=== PATIENT | male | born 1970 | race Caucasian/White ===

== ENCOUNTER → 2018-03-27 | Outpatient (CLI) | payer OTHER ==
[2018-03-27] MEDS: OXYMETAZOLINE 0.05% NASAL SPRAY 30ML BOTTLE. NS (21:30)
== END | disposition home or self-care (01) ==
LOC: SLPLAB 18:36
DX: G47.33 Obstructive sleep apnea (adult) (pediatric) (principal); R06.83 Snoring
CPT/HCPCS: 95810

== ENCOUNTER 2021-07-15 13:35 | Emergency (ER) | payer OTHER ==
[~2021-07-15] VITALS: Ht 172.7 cm; Wt 127.2 kg
[2021-07-15] MEDS ORDERED: IV NORMAL SALINE 1000ML BAG 1,000 ML IV ONE (14:15)
[2021-07-15] MEDS ORDERED: MORPHINE SULFATE 10 MG/ML VIAL. IV ONE (14:15)
[2021-07-15] MEDS ORDERED: ACETAMINOPHEN 500 MG TABLET PO ONE (14:15)
--- NOTE | 2021-07-15 14:20 | PHYS DOC ---
General Adult EDM: Chief Complaint: BLOOD IN URINE HPI: HPI: 51-year-old male who was recently diagnosed with coronavirus presents to the emergency department complaining of hematuria. He describes a hematuria as throughout his urinary stream, change in color from dark brown to purple intermittently. He reports some mild pain with urination, he also complains of some left flank and left lower quadrant abdominal pain with the urination. He also complains of fever, shortness of breath, congestion from his viral illness. He has not been vaccinated for Covid. The patient denies nausea, vomiting, chest pain, abdominal pain, urinary symptoms, stool change, recent trauma, or any other complaints. Review of Systems: Review of Systems: ROS is otherwise negative except for what was mentioned in HPI Heart Score: C/O Chest Pain: No Current Medications: Current Medications Medications (Trade) Dose Ordered Sig/Wojciech Start Time Stop Time Status Last Admin Dose Admin Acetaminophen (Tylenol) 1,000 mg 1X ONCE 07/15/21 14:15 07/15/21 14:16 UNV Morphine Sulfate (Morphine Sulfate) 5 mg 1X ONCE 07/15/21 14:15 07/15/21 14:16 UNV Sodium Chloride 1,000 ml @ 1,000 mls/hr 1X ONCE 07/15/21 14:15 07/15/21 15:14 UNV Allergies: Allergies: Allergies Coded Allergies Type Severity Reaction Last Updated Verified Penicillins Allergy Severe SHORTNESS OF BREATH 03/27/18 Yes Sulfa (Sulfonamide Antibiotics) Allergy Intermediate SWELLING, ITCHING 03/27/18 Yes Physical Exam: PE: Constitutional: No acute distress, non-toxic appearance. Warm to touch HENT: Atraumatic, bilateral external ears normal, nose normal. Eyes: PERRLA, EOMI, conjunctiva normal, no discharge. Neck: Normal range of motion, supple, no stridor. Cardiovascular: Heart rate regular rhythm. 2+ radial pulses Lungs & Thorax: No respiratory distress, symmetrical expansion. Abdomen: [Soft, left lower quadrant tenderness Skin: Warm, dry. Extremities: No tenderness, no cyanosis, ROM intact, no edema. Neurologic: Alert and oriented X 3, normal motor function, normal sensory function, no focal deficits noted. Non ataxic gait. GCS 15. Psychologic: Affect normal, judgment normal, mood normal. Current Patient Data: Labs: Laboratory Tests Test 07/15/21 14:20 07/15/21 16:54 White Blood Count 3.2 x10^3/uL (4.0-11.0) Red Blood Count 4.28 x10^6/uL (4.30-5.70) Hemoglobin 13.1 g/dL (13.0-17.5) Hematocrit 37.2 % (39.0-53.0) Mean Corpuscular Volume 87 fL (79-100) Mean Corpuscular Hemoglobin 31 pg (25-35) Mean Corpuscular Hemoglobin Concent 35 g/dL (31-37) Red Cell Distribution Width 14.0 % (11.5-14.5) Platelet Count 156 x10^3/uL (140-400) Neutrophils (%) (Auto) 64 % (31-73) Lymphocytes (%) (Auto) 20 % (24-48) Monocytes (%) (Auto) 15 % (0-9) Eosinophils (%) (Auto) 1 % (0-3) Basophils (%) (Auto) 1 % (0-3) Neutrophils # (Auto) 2.0 x10^3/uL (1.8-7.7) Lymphocytes # (Auto) 0.6 x10^3/uL (1.0-4.8) Monocytes # (Auto) 0.5 x10^3/uL (0.0-1.1) Eosinophils # (Auto) 0.0 x10^3/uL (0.0-0.7) Basophils # (Auto) 0.0 x10^3/uL (0.0-0.2) Sodium Level 136 mmol/L (136-145) Potassium Level 4.3 mmol/L (3.5-5.1) Chloride Level 99 mmol/L (98-107) Carbon Dioxide Level 29 mmol/L (21-32) Anion Gap 8 (6-14) Blood Urea Nitrogen 16 mg/dL (8-26) Creatinine 2.2 mg/dL (0.7-1.3) Estimated GFR (Cockcroft-Gault) 31.8 Glucose Level 122 mg/dL (70-99) Calcium Level 8.5 mg/dL (8.5-10.1) Urine Collection Type Unknown Urine Color Jessi Urine Clarity Cloudy Urine pH 6.0 (<5.0-8.0) Urine Specific [place] 1.020 (1.000-1.030) Urine Protein 100 mg/dL (NEG-TRACE) Urine Glucose (UA) Negative mg/dL (NEG) Urine Ketones (Stick) Trace mg/dL (NEG) Urine Blood Large (NEG) Urine Nitrite Negative (NEG) Urine Bilirubin Negative (NEG) Urine Urobilinogen Dipstick 0.2 mg/dL (0.2 mg/dL) Urine Leukocyte Esterase Small (NEG) Urine RBC Tntc /HPF (0-2) Urine WBC 1-4 /HPF (0-4) Urine Bacteria 0 /HPF (0-FEW) Urine Yeast Present /HPF Vital Signs: Vital Signs Date Time Temp Pulse Resp B/P (MAP) Pulse Ox O2 Delivery O2 Flow Rate FiO2 07/15/21 16:00 94 154/78 (103) 95 07/15/21 15:00 99 146/80 (102) 95 07/15/21 14:00 102.5 104 20 129/79 95 102.5 Radiology/Procedures: Radiology/Procedures: EXAMINATION: CT ABDOMEN+PELVIS WO. Technique: Axial images with coronal and sagittal reconstructions are performed of abdomen and pelvis without contrast. One or more of the following radiation dose reduction techniques was used: automated exposure control, adjustment of mA and/or KV according to patient size, and/or utilization of iterative reconstruction technique. HISTORY: 51 years Male Reason: abdominal pain, llq, hematuria COMPARISON: None. FINDINGS: There is minimal focus of groundglass opacity in the inferior aspect of the lingula measuring 1.4 cm in size of uncertain etiology. There is diffuse hepatic steatosis. The spleen is a slightly enlarged measuring 15 x 5.5 cm and 13 cm craniocaudally. The pancreas, and adrenals appear unremarkable. The gallbladder is not seen presumably related to prior cholecystectomy. Correlate to surgical history. The kidneys demonstrate no hydronephrosis. There are from 2 stones in the lower from pole of the right kidney measuring up to 4 mm in size. The urinary bladder appear unremarkable. No left kidney or ureteric stones. There are sutures seen near the base of the cecum, presumably related to prior appendectomy. The abdominal aorta is normal in caliber. No para-aortic significantly enlarged lymph nodes seen. No significant free fluid or fluid collection in the abdomen or pelvis noted. There is an indeterminate soft tissue nodule seen anteriorly in the upper abdomen on the left side with possible attachment to abdominal wall musculature. It has smooth margins and it is probably of benign nature. Mildly enlarged mesenteric lymph nodes up to 1 cm in short axis is seen of uncertain significance. The osseous structures demonstrate no significant abnormality. IMPRESSION: 1. Nonobstructive the lower pole right kidney stones up to 4 mm in size. No hydronephrosis. 2. Mild splenomegaly. 3. Hepatic steatosis. 4. Mild enlargement of mesenteric lymph nodes. 5. Indeterminant smoothly marginated soft tissue nodule in the upper anterior aspect of the abdomen on the left side. 6. Groundglass nodule measuring 1.4 cm in the lower from aspect of the lingula in the lung base. 8. Follow-up CT scan of the abdomen in 6 months is recommended to reevaluate the findings above is suggested. Electronically signed by: Fran José MD (07/15/2021 3:16 PM) AP chest. HISTORY: Short of breath AP view was taken of the chest. Heart is normal in size. There is no pleural effusion. There are no definite infiltrates. The patient's taken a poor inspiration. IMPRESSION: 1. Poor inspiration. 2. No acute infiltrates. Electronically signed by: Vamsi Rizzo MD (07/15/2021 2:47 PM) Course & Med Decision Making: Course & Med Decision Making Vital Signs Date Time Temp Pulse Resp B/P (MAP) Pulse Ox O2 Delivery O2 Flow Rate FiO2 07/15/21 16:48 100.6 100.6 07/15/21 16:00 94 154/78 (103) 95 07/15/21 15:00 99 146/80 (102) 95 07/15/21 14:00 102.5 104 20 129/79 95 102.5 Patient's labs are as above including a creatinine of 2.2 GFR 31. He had a large amount of bloody appearing urine, but no cause was seen on CT. Patient was offered admission to the hospital, he would rather follow-up outpatient with his doctor. We will refer him to a urologist. I urged him to return if he has any progressive symptoms or symptoms do not change. His vitals are improved as above. He otherwise has no further complaints. He did mention that he has a history of chronic kidney disease, so this lab result today may very well be his baseline, although he does not know the number specifically. He was advised to continue to hydrate at home. He mentioned that he drinks lots of Monster energy drinks and does not drink enough water at home. He states that he will try to drink her water, follow-up with his physician in 48 hours and try to get repeat blood work as we discussed in 48 hours to compare to today's results Departure Departure Impression: Primary Impression: Hematuria Disposition: HOME / SELF CARE / HOMELESS Condition: STABLE Referrals: JAS RAMIREZ MD (PCP) Patient Instructions: Hematuria, Adult Additional Instructions: Please follow-up with a urologist as well as your primary care doctor. You need to have blood work done in 48 hours to compare to today's results. Your GFR was 31 and your creatinine was 2.2. Please get repeat blood work to compare. Please drink plenty of water at home, avoid caffeinated drinks, and remember to stay hydrated. You are offered admission to the hospital today but with shared decision-making we will attempt to manage her condition outpatient. If your condition changes at all, you welcome to return to the emergency department for further care. Urology Located in: [facility] Address: [address] [place] [address] [address], [place] [address] DOMINIQUE SIMMONS DO Jul 15, 2021 14:20
[2021-07-15 14:36] LABS: BASO % 1 % (0-3); CALCIUM 8.5 mg/dL (8.5-10.1); CREATININE 2.2 mg/dL (0.7-1.3); EOS % 1 % (0-3); GFR 31.8; HEMATOCRIT 37.2 % (39.0-53.0); HEMOGLOBIN 13.1 g/dL (13.0-17.5); LYMPH # 0.6 x10^3/uL (1.0-4.8); LYMPH % 20 % (24-48); MEAN CORPUSCULAR HEMOGLOBIN 31 pg (25-35); MEAN CORPUSCULAR HGB CONC 35 g/dL (31-37); MEAN CORPUSCULAR VOLUME 87 fL (79-100); MONO # 0.5 x10^3/uL (0.0-1.1); MONO % 15 % (0-9); NEUT % 64 % (31-73); PLATELET COUNT 156 x10^3/uL (140-400); POTASSIUM 4.3 mmol/L (3.5-5.1); RED BLOOD COUNT 4.28 x10^6/uL (4.30-5.70); WHITE BLOOD COUNT 3.2 x10^3/uL (4.0-11.0)
--- NOTE | 2021-07-15 14:50 | RAD ---
AP chest. HISTORY: Short of breath AP view was taken of the chest. Heart is normal in size. There is no pleural effusion. There are no d efinite infiltrates. The patient's taken a poor inspiration. IMPRESSION: 1. Poor inspiration. 2. No acute infiltrates. Electronically signed by: Vamsi Rizzo MD (07/15/2021 2:47 PM) [facility]
--- NOTE | 2021-07-15 15:19 | RAD ---
Site ID: [id number] EXAMINATION: CT ABDOMEN+PELVIS WO. Technique: Axial images with coronal and sagittal reconstructions are performed of abdomen and pelvis without contrast. One or more of the following radiation dose reduction techniques was used: automated exposure control , adjustment of mA and/or KV according to patient size, and/or utilization of iterative reconstructio n technique. HISTORY: 51 years Male Reason: abdominal pain, llq, hematuria COMPARISON: None. FINDINGS: There is minimal focus of groundglass opacity in the inferior aspect of the lingula measuring 1.4 cm in size of uncertain etiology. There is diffuse hepatic steatosis. The spleen is a slightly enlarged measuring 15 x 5.5 cm and 13 cm craniocaudally. The pancreas, and adrenals appear unremarkable. The gallbladder is not seen presumab ly related to prior cholecystectomy. Correlate to surgical history. The kidneys demonstrate no hydronephrosis. There are from 2 stones in the lower from pole of the righ t kidney measuring up to 4 mm in size. The urinary bladder appear unremarkable. No left kidney or ure teric stones. There are sutures seen near the base of the cecum, presumably related to prior appendectomy. The abdominal aorta is normal in caliber. No para-aortic significantly enlarged lymph nodes seen. No significant free fluid or fluid collection in the abdomen or pelvis noted. There is an indeterminate soft tissue nodule seen anteriorly in the upper abdomen on the left side wi th possible attachment to abdominal wall musculature. It has smooth margins and it is probably of kathryn ign nature. Mildly enlarged mesenteric lymph nodes up to 1 cm in short axis is seen of uncertain sign ificance. The osseous structures demonstrate no significant abnormality. IMPRESSION: 1. Nonobstructive the lower pole right kidney stones up to 4 mm in size. No hydronephrosis. 2. Mild splenomegaly. 3. Hepatic steatosis. 4. Mild enlargement of mesenteric lymph nodes. 5. Indeterminant smoothly marginated soft tissue nodule in the upper anterior aspect of the abdomen o n the left side. 6. Groundglass nodule measuring 1.4 cm in the lower from aspect of the lingula in the lung base. 8. Follow-up CT scan of the abdomen in 6 months is recommended to reevaluate the findings above is nicholson ggested. Electronically signed by: Fran José MD (07/15/2021 3:16 PM) [id number]
[2021-07-15 17:03] LABS: BILIRUBIN,URINE NEGATIVE (NEG); CLARITY,URINE CLOUDY; NITRITE,URINE NEGATIVE (NEG); PROTEIN,URINE 100 mg/dL (NEG-TRACE); UROBILINOGEN,URINE 0.2 mg/dL (0.2 mg/dL)
[2021-07-15 17:12] LABS: COLOR,URINE AMBER
[2021-07-15 17:16] LABS: BACTERIA,URINE 0 /HPF (0-FEW); RBC,URINE TNTC /HPF (0-2)
[2021-07-15 17:18] LABS: YEAST,URINE PRESENT /HPF
[2021-07-15 18:50] VITALS: BP 138/70
== END 2021-07-15 18:50 | disposition home or self-care (01) ==
LOC: ER 13:35
DX: R31.9 Hematuria, unspecified (principal); R10.32 Left lower quadrant pain; R50.9 Fever, unspecified; R06.02 Shortness of breath; R09.81 Nasal congestion; Z88.0 Allergy status to penicillin; Z88.2 Allergy status to sulfonamides
CPT/HCPCS: 36415; 71045; 74176; 80048; 81001; 85025; 87086; 96360; 96361; 99285; J7030

== ENCOUNTER 2021-07-25 21:48 | Inpatient (IN) | payer OTHER ==
[~2021-07-25] VITALS: Ht 172.7 cm; Wt 119.5 kg
[2021-07-25] MEDS: IV NORMAL SALINE 1000ML BAG 1,000 ML IV ONE (01:30)
--- NOTE | 2021-07-25 22:01 | PHYS DOC ---
Past Medical History Additional Past Medical Histor: PE Past Surgical History: Appendectomy Additional Past Surgical Histo: PLASTIC SURGERY ON EARS Smoking Status: Former Smoker Alcohol Use: Rarely General Adult EDM: Chief Complaint: Shortness of breath HPI: HPI: This is a 31-year-old male who recently was diagnosed with Covid presents to the emergency complaining of increasing shortness of breath and chest pain when he breathes in deeply. He has a history of pulmonary embolism in the past. He reports that he wears a CPAP regularly at night and he has having more shortness of breath than usual with the CPAP machine. Endorses mild cough the patient denies nausea, vomiting, fever, chills, abdominal pain, urinary symptoms, recent trauma, or any other complaints. Review of Systems: Review of Systems: ROS is otherwise negative except for what was mentioned in HPI Heart Score: C/O Chest Pain: Yes HEART Score for Chest Pain: HEART Score for Chest Pain Response (Comments) Value History Moderately Suspicious 1 ECG Normal 0 Age >45 - < 65 1 Risk Factors 1 or 2 Risk Factors 1 Total 3 Allergies: Allergies: Allergies Coded Allergies Type Severity Reaction Last Updated Verified Penicillins Allergy Severe SHORTNESS OF BREATH 03/27/18 Yes Sulfa (Sulfonamide Antibiotics) Allergy Intermediate SWELLING, ITCHING 03/27/18 Yes Uncoded Allergies Type Severity Reaction Last Updated Verified SHELLFISH Allergy Unknown 07/15/21 Physical Exam: PE: Constitutional: No acute distress, non-toxic appearance. HENT: Atraumatic, bilateral external ears normal, nose normal. Eyes: PERRLA, EOMI, conjunctiva normal, no discharge. Neck: Normal range of motion, supple, no stridor. Cardiovascular: Heart rate regular rhythm. 2+ radial pulses Lungs & Thorax: No respiratory distress, symmetrical expansion. Abdomen: Soft, no tenderness Skin: Warm, dry. Extremities: No tenderness, no cyanosis, ROM intact, no edema. Neurologic: Alert and oriented X 3, normal motor function, normal sensory function, no focal deficits noted. Non ataxic gait. GCS 15. Psychologic: Affect normal, judgment normal, mood normal. Current Patient Data: Labs: Laboratory Tests Test 07/25/21 22:20 07/25/21 22:26 SARS-CoV-2 Antigen (Rapid) Negative (NEGATIVE) White Blood Count 4.4 x10^3/uL (4.0-11.0) Red Blood Count 4.11 x10^6/uL (4.30-5.70) Hemoglobin 12.4 g/dL (13.0-17.5) Hematocrit 34.3 % (39.0-53.0) Mean Corpuscular Volume 83 fL (79-100) Mean Corpuscular Hemoglobin 30 pg (25-35) Mean Corpuscular Hemoglobin Concent 36 g/dL (31-37) Red Cell Distribution Width 14.1 % (11.5-14.5) Platelet Count 231 x10^3/uL (140-400) Neutrophils (%) (Auto) 59 % (31-73) Lymphocytes (%) (Auto) 28 % (24-48) Monocytes (%) (Auto) 10 % (0-9) Eosinophils (%) (Auto) 3 % (0-3) Basophils (%) (Auto) 1 % (0-3) Neutrophils # (Auto) 2.6 x10^3/uL (1.8-7.7) Lymphocytes # (Auto) 1.2 x10^3/uL (1.0-4.8) Monocytes # (Auto) 0.4 x10^3/uL (0.0-1.1) Eosinophils # (Auto) 0.1 x10^3/uL (0.0-0.7) Basophils # (Auto) 0.0 x10^3/uL (0.0-0.2) D-Dimer (Marilu) < 0.27 ug/mlFEU Sodium Level 140 mmol/L (136-145) Potassium Level 3.4 mmol/L (3.5-5.1) Chloride Level 103 mmol/L (98-107) Carbon Dioxide Level 27 mmol/L (21-32) Anion Gap 10 (6-14) Blood Urea Nitrogen 17 mg/dL (8-26) Creatinine 1.7 mg/dL (0.7-1.3) Estimated GFR (Cockcroft-Gault) 42.9 Glucose Level 81 mg/dL (70-99) Calcium Level 8.6 mg/dL (8.5-10.1) Troponin I Quantitative < 0.017 ng/mL (0.000-0.055) AG-Pqi-F-Type Natriuretic Peptide 35 pg/mL (0-124) Vital Signs: Vital Signs Date Time Temp Pulse Resp B/P (MAP) Pulse Ox O2 Delivery O2 Flow Rate FiO2 07/25/21 21:50 98.7 91 16 130/82 (98) 95 Room Air 98.7 EKG: EKG: Normal sinus rhythm rate of 91, no ST-T wave changes, no ectopic beats, normal axis, normal NE, QRS, and QTc intervals. Impression: Normal EKG. interpreted by me, Paul Hutchinson D.O. Radiology/Procedures: Radiology/Procedures: EXAMINATION: Chest radiograph. VIEWS: Single AP view of the chest COMPARISON: 07/15/2021 INDICATION:51 years, Male, COVID , shortness of breath. FINDINGS: Normal cardiomediastinal silhouette. Decreased lung volumes. Right perihilar linear opacities. Left basilar hazy airspace opacity. No pleural effusion or pneumothorax. No acute osseous process. IMPRESSION: 1. Left basilar airspace opacity favoring pneumonia. 2. Right perihilar opacities may represent subsegmental atelectasis and/or developing infiltrate. Course & Med Decision Making: Course & Med Decision Making Patient with recent Covid diagnosis, he has pneumonia on his chest x-ray today, we will admit him to the hospital for further care and IV antibiotics. Patient will be admitted to Dr. Quintanilla. Patient amenable to this plan. He uses CPAP at night as per regular. My Orders - PAUL HUTCHINSON DO Procedure Category Date Status Time Cbc W Autodiff LAB 07/25/21 Complete 22:13 Basic Metabolic Panel LAB 07/25/21 Complete 22:13 D-Dimer LAB 07/25/21 Complete 22:13 Troponini LAB 07/25/21 Complete 22:13 Nt-Pro Bnp LAB 07/25/21 Complete 22:13 Chest Ap Only RAD 07/25/21 Resulted 22:20 Sars Cov2 (Tarsha) LAB 07/25/21 In Process 22:15 Sars Antigen Nuria Rapid LAB 07/25/21 Complete 22:15 Ceftriaxone Iv Push PHA 07/25/21 Complete (Rocephin) 23:30 Azithrmycn 500mg Ivpb PHA 07/25/21 In Process For Omni (Zithroma 23:30 Blood Culture SHAYLA 07/25/21 Logged 23:12 Lactic Acid With LAB 07/25/21 Logged Reflex 23:12 Iv Normal Saline PHA 07/25/21 In Process 1000ml Bag (Iv Sodium 23:30 Iv Normal Saline PHA 07/25/21 In Process 1000ml Bag (Iv Sodium 23:30 Departure Departure Impression: Primary Impression: Pneumonia Disposition: ADMITTED INPATIENT Admitting Physician: DELL Macias) Condition: STABLE Referrals: JAS RAMIREZ MD (PCP) PAUL HUTCHINSON DO Jul 25, 2021 22:01
[2021-07-25 22:43] LABS: BASO % 1 % (0-3); EOS # 0.1 x10^3/uL (0.0-0.7); EOS % 3 % (0-3); HEMATOCRIT 34.3 % (39.0-53.0); HEMOGLOBIN 12.4 g/dL (13.0-17.5); LYMPH # 1.2 x10^3/uL (1.0-4.8); LYMPH % 28 % (24-48); MEAN CORPUSCULAR HEMOGLOBIN 30 pg (25-35); MEAN CORPUSCULAR HGB CONC 36 g/dL (31-37); MEAN CORPUSCULAR VOLUME 83 fL (79-100); MONO # 0.4 x10^3/uL (0.0-1.1); MONO % 10 % (0-9); NEUT # 2.6 x10^3/uL (1.8-7.7); NEUT % 59 % (31-73); PLATELET COUNT 231 x10^3/uL (140-400); RED BLOOD COUNT 4.11 x10^6/uL (4.30-5.70); RED CELL DISTRIBUTION WIDTH 14.1 % (11.5-14.5); WHITE BLOOD COUNT 4.4 x10^3/uL (4.0-11.0)
[2021-07-25 23:02] LABS: CALCIUM 8.6 mg/dL (8.5-10.1); CREATININE 1.7 mg/dL (0.7-1.3); GFR 42.9; POTASSIUM 3.4 mmol/L (3.5-5.1)
--- NOTE | 2021-07-25 23:05 | RAD ---
EXAMINATION: Chest radiograph. VIEWS: Single AP view of the chest COMPARISON: 07/15/2021 INDICATION:51 years, Male, COVID , shortness of breath. FINDINGS: Normal cardiomediastinal silhouette. Decreased lung volumes. Right perihilar linear opacities. Left b asilar hazy airspace opacity. No pleural effusion or pneumothorax. No acute osseous process. IMPRESSION: 1. Left basilar airspace opacity favoring pneumonia. 2. Right perihilar opacities may represent subsegmental atelectasis and/or developing infiltrate. Electronically signed by: Edson Horn DO (07/25/2021 11:03 PM) [facility]
[2021-07-25] MEDS ORDERED: cefTRIAXone IV Push 1 GM VIAL. IVP ONE (23:30)
[2021-07-25] MEDS ORDERED: AZITHRMYCN 500MG IVPB FOR OMNI 250 ML IV ONE (23:30)
[2021-07-25] MEDS ORDERED: IV NORMAL SALINE 1000ML BAG 1,000 ML IV ONE (23:30)
[2021-07-26] MEDS ORDERED: fentaNYL PF VIAL 100 MCG/2 ML VIAL IVP PRN (00:15)
[2021-07-26] MEDS ORDERED: ONDANSETRON PF 4 MG/2 ML VIAL. IVP PRN ×2 (00:15→09:15)
[2021-07-26] MEDS ORDERED: ACETAMINOPHEN 325 MG TABLET. PO PRN ×2 (00:15→09:15)
[2021-07-26] MEDS: IV NORMAL SALINE 1000ML BAG 1,000 ML IV ONE (01:30)
--- NOTE | 2021-07-26 02:46 | NUR ---
Jr just arrived from Ed via bed With PNU,SOA and PUI. Was Covid + on 07/15. He is A/O x4 and will make needs known.
[2021-07-26 03:20] VITALS: BP 138/92
[2021-07-26] MEDS ORDERED: RIVA10TA PO (03:25)
[2021-07-26] MEDS ORDERED: OMEP20TA8 PO (03:25)
[2021-07-26] MEDS ORDERED: LISI10TA16 PO (03:25)
[2021-07-26] MEDS ORDERED: LORA10TA3 PO (03:25)
[2021-07-26 07:00] VITALS: BP 129/89
--- NOTE | 2021-07-26 09:08 | PDOC1 ---
History and Physical Date of Service: DOS: DATE: 07/26/21 TIME: 09:07 Chief Complaint: Problems: (1) Pneumonia due to COVID-19 virus (2) Obesity (3) History of pulmonary embolus (PE) Chief Complain: Weakness, shortness of breath History of Present Illness: HPI: Patient is a 51-year-old white male presented to the emergency room overnight due to worsening shortness of breath. Patient does have a history of DVTs and pulmonary embolism currently on home Xarelto. Patient reports that he was diagnosed with Covid positive a few days ago. Initially sent home and was doing okay. He however, wears a CPAP at night and anytime he sleeps and the patient reports that he has been more short of breath despite continued use of his CPAP with compliance. He says that yesterday the shortness of breath was really worrying him thus he was brought to the ER for admitted. When seen today espinoza ent was reporting that his breathing was better but still not at his baseline. On 2 L nasal cannula does not wear home oxygen. Would like a CPAP provided for when he sleeps. Patient is wanting to get back to work as soon as possible. I told him we would like to keep it for at least tonight can reevaluate in the morning. And on a daily basis. He was denying any sort of headache, dizziness, vision changes, fevers, chest pain, abdominal pain, joint pain. Past Medical/Surgical History: PMH/PSH: Significant for history of pulmonary embolism and DVT, which was recurrent initially in 2017 and then in 2018. He has been on Xarelto since then. Sleep apnea. Allergies: Allergies: Coded Allergies: Penicillins (Verified Allergy, Severe, SHORTNESS OF BREATH, 03/27/18) iodine (Verified Allergy, Severe, 07/25/21) shellfish derived (Verified Allergy, Severe, 07/25/21) Sulfa (Sulfonamide Antibiotics) (Verified Allergy, Intermediate, SWELLING, ITCHING, 03/27/18) Family History: Family History: Noncontributory Social History: Social History: Denies alcohol tobacco or drug use Current Medications: Current Medications Current Medications Ceftriaxone Sodium (Rocephin) 2 gm 1X ONCE IVP Last administered on 07/25/21at 23:37; Start 07/25/21 at 23:30; Stop 07/25/21 at 23:31; Status DC Azithromycin 250 ml @ 250 mls/hr 1X ONCE IV Last administered on 07/25/21at 23:35; Start 07/25/21 at 23:30; Stop 07/26/21 at 00:29; Status DC Sodium Chloride 1,000 ml @ 1,000 mls/hr 1X ONCE IV Last administered on 07/25/21at 23:35; Start 07/25/21 at 23:30; Stop 07/26/21 at 00:29; Status DC Sodium Chloride 1,000 ml @ 1,000 mls/hr 1X ONCE IV Last administered on 07/26/21at 01:30; Start 07/25/21 at 23:30; Stop 07/26/21 at 00:29; Status DC Ondansetron HCl (Zofran) 4 mg PRN Q8HRS PRN IVP NAUSEA/VOMITING 1ST CHOICE; Start 07/26/21 at 00:15; Stop 07/27/21 at 00:14 Fentanyl Citrate (Fentanyl 2ml Vial) 50 mcg PRN Q2HR PRN IVP SEVERE PAIN 7-10; Start 07/26/21 at 00:15; Stop 07/27/21 at 00:14 Acetaminophen (Tylenol) 650 mg PRN Q4HRS PRN PO FEVER > 100.3'F; Start 07/26/21 at 00:15; Stop 07/27/21 at 00:14 Active Scripts Active Reported Omeprazole 20 Mg Tablet.dr 1 Tab PO DAILY Loratadine 10 Mg Tablet 1 Tab PO DAILY Xarelto (Rivaroxaban) 10 Mg Tablet 1 Tab PO DAILY 10 Days Lisinopril 10 Mg Tablet 10 Mg PO DAILY ROS: Review of Systems Review of System Negative unless noted in HPI Physical Exam: Vital Signs: Vital Signs Date Time Temp Pulse Resp B/P (MAP) Pulse Ox O2 Delivery O2 Flow Rate FiO2 07/26/21 07:00 98.4 79 20 129/89 (102) 96 Nasal Cannula 2.0 98.4 Physcial Exam: GEN: No apparent distress. Alert and oriented obese HEENT: Normal cephalic, atraumatic, external auditory canals are patent EYES: Extraocular muscles are intact, pupil are equally round and reactive to light and accommodation MUSCULOSKELETAL: Well developed , well nourished, good range of motion ENDOCRINE: No thyromegaly was palpated LYMPHATICS: No cervical chain or axillary nodes were noted HEMATOPOIETIC: No bruising NECK: Supple, no JVD, no thyromegaly was noted LUNGS: Clear to auscultation in all lung higgins without rhonchi or wheezing HEART: RRR, S1, S2 present. Peripheral pulses intact, no obvious murmurs noted ABDOMEN: Soft, nontender. Positive bowel sounds, no organomegaly, normal bowel sounds EXTREMITIES: Without clubbing, cyanosis, or edema. Pedal pulses intact. Negative Homans sign NEUROLOGIC: Normal speech and tone. A&O x 3, moves all extremities, no obvious focal deficits PSYCHIATRIC: Normal affect, normal mood. Stable SKIN: No ulcerations or rashes, good skin turgor, no jaundice VASCULAR: Good capillary refill, neurovascular bundle appears to be intact Labs: Labs: Laboratory Tests Test 07/25/21 22:20 07/25/21 22:26 07/26/21 00:10 SARS-CoV-2 Antigen (Rapid) Negative (NEGATIVE) White Blood Count 4.4 x10^3/uL (4.0-11.0) Red Blood Count 4.11 x10^6/uL (4.30-5.70) Hemoglobin 12.4 g/dL (13.0-17.5) Hematocrit 34.3 % (39.0-53.0) Mean Corpuscular Volume 83 fL (79-100) Mean Corpuscular Hemoglobin 30 pg (25-35) Mean Corpuscular Hemoglobin Concent 36 g/dL (31-37) Red Cell Distribution Width 14.1 % (11.5-14.5) Platelet Count 231 x10^3/uL (140-400) Neutrophils (%) (Auto) 59 % (31-73) Lymphocytes (%) (Auto) 28 % (24-48) Monocytes (%) (Auto) 10 % (0-9) Eosinophils (%) (Auto) 3 % (0-3) Basophils (%) (Auto) 1 % (0-3) Neutrophils # (Auto) 2.6 x10^3/uL (1.8-7.7) Lymphocytes # (Auto) 1.2 x10^3/uL (1.0-4.8) Monocytes # (Auto) 0.4 x10^3/uL (0.0-1.1) Eosinophils # (Auto) 0.1 x10^3/uL (0.0-0.7) Basophils # (Auto) 0.0 x10^3/uL (0.0-0.2) D-Dimer (Marilu) < 0.27 ug/mlFEU Sodium Level 140 mmol/L (136-145) Potassium Level 3.4 mmol/L (3.5-5.1) Chloride Level 103 mmol/L (98-107) Carbon Dioxide Level 27 mmol/L (21-32) Anion Gap 10 (6-14) Blood Urea Nitrogen 17 mg/dL (8-26) Creatinine 1.7 mg/dL (0.7-1.3) Estimated GFR (Cockcroft-Gault) 42.9 Glucose Level 81 mg/dL (70-99) Calcium Level 8.6 mg/dL (8.5-10.1) Troponin I Quantitative < 0.017 ng/mL (0.000-0.055) DQ-Zoq-S-Type Natriuretic Peptide 35 pg/mL (0-124) Lactic Acid Level 0.8 mmol/L (0.4-2.0) Laboratory Tests Test 07/25/21 22:20 07/25/21 22:26 07/26/21 00:10 SARS-CoV-2 Antigen (Rapid) Negative (NEGATIVE) White Blood Count 4.4 x10^3/uL (4.0-11.0) Red Blood Count 4.11 x10^6/uL (4.30-5.70) Hemoglobin 12.4 g/dL (13.0-17.5) Hematocrit 34.3 % (39.0-53.0) Mean Corpuscular Volume 83 fL (79-100) Mean Corpuscular Hemoglobin 30 pg (25-35) Mean Corpuscular Hemoglobin Concent 36 g/dL (31-37) Red Cell Distribution Width 14.1 % (11.5-14.5) Platelet Count 231 x10^3/uL (140-400) Neutrophils (%) (Auto) 59 % (31-73) Lymphocytes (%) (Auto) 28 % (24-48) Monocytes (%) (Auto) 10 % (0-9) Eosinophils (%) (Auto) 3 % (0-3) Basophils (%) (Auto) 1 % (0-3) Neutrophils # (Auto) 2.6 x10^3/uL (1.8-7.7) Lymphocytes # (Auto) 1.2 x10^3/uL (1.0-4.8) Monocytes # (Auto) 0.4 x10^3/uL (0.0-1.1) Eosinophils # (Auto) 0.1 x10^3/uL (0.0-0.7) Basophils # (Auto) 0.0 x10^3/uL (0.0-0.2) D-Dimer (Marilu) < 0.27 ug/mlFEU Sodium Level 140 mmol/L (136-145) Potassium Level 3.4 mmol/L (3.5-5.1) Chloride Level 103 mmol/L (98-107) Carbon Dioxide Level 27 mmol/L (21-32) Anion Gap 10 (6-14) Blood Urea Nitrogen 17 mg/dL (8-26) Creatinine 1.7 mg/dL (0.7-1.3) Estimated GFR (Cockcroft-Gault) 42.9 Glucose Level 81 mg/dL (70-99) Calcium Level 8.6 mg/dL (8.5-10.1) Troponin I Quantitative < 0.017 ng/mL (0.000-0.055) MK-Ili-L-Type Natriuretic Peptide 35 pg/mL (0-124) Lactic Acid Level 0.8 mmol/L (0.4-2.0) Assessment/Plan Assessment/Plan COVID-19 pneumonia, morbid obesity, history of pulmonary embolisms and DVTs on home Xarelto -Patient previously tested Covid positive a few days ago at outside facility, initially was managed outpatient -Several day history of worsening shortness of breath despite continued use of CPAP at night -Start Covid treatment measures and continue for now. -Pulmonary following -Wean oxygen as tolerated -Please provide patient CPAP -Continue home Xarelto -Otherwise Home meds resumed as indicated -Regular diet Justifications for Admission Other Justification PRETTY WILSON MD Jul 26, 2021 09:07
[2021-07-26] MEDS ORDERED: oxyCODONE IR 5 MG TABLET PO PRN (09:15)
[2021-07-26] MEDS ORDERED: oxyCODONE/APAP 5/325 1 TAB TABLET PO PRN (09:15)
[2021-07-26] MEDS ORDERED: ZOLPIDEM 5 MG TABLET. PO PRN (09:15)
[2021-07-26] MEDS ORDERED: ELECTROLYTE (NON-ICU) PROTOCOL. MC PRN (09:15)
[2021-07-26] MEDS ORDERED: CALCIUM CARBONATE 500 MG TAB.CHEW PO PRN (09:15)
[2021-07-26] MEDS ORDERED: RIVA20TA2 PO (09:28)
[2021-07-26] MEDS: PANTOPRAZOLE 40 MG TABLET.DR. PO SCH (10:49)
[2021-07-26] MEDS: CETIRIZINE HCL 10 MG TABLET. PO SCH (10:49)
[2021-07-26] MEDS: DOXYCYCLINE HYCLATE 100 MG TABLET PO SCH ×2 (10:50→21:01)
[2021-07-26] MEDS: LISINOPRIL 10 MG TABLET PO SCH (10:50)
--- NOTE | 2021-07-26 10:53 | CONS ---
DATE OF CONSULTATION: 07/26/2021 PULMONARY CONSULTATION ATTENDING PHYSICIAN: Liz Quintanilla DO. REASON FOR CONSULTATION: Respiratory failure, COVID-19 pneumonia. HISTORY OF PRESENT ILLNESS: The patient is a 51-year-old obese male with a BMI of 40. The patient has no significant history of tobacco use. He does have history of DVT and PE in 2017 and then reoccurred in 2018. He has been on Xarelto lifelong. He was brought into the hospital as he was tested positive for COVID on the 07/15. He started to have shortness of breath and some nonspecific chest pain. The patient has history of sleep apnea for which he uses CPAP at nighttime. He denies any tobacco use. He was seen in the emergency room where a chest x-ray revealed bilateral faint interstitial infiltrates with more dominant in the left base. He was tested COVID negative by rapid test. Creatinine was 1.7. The patient feels better. He is requiring oxygen at 2 liters. PAST MEDICAL HISTORY: Significant for history of pulmonary embolism and DVT, which was recurrent initially in 2017 and then in 2018. He has been on Xarelto since then. Sleep apnea. PAST SURGICAL HISTORY: Appendectomy and plastic surgery on ears. ALLERGIES: PENICILLIN, IODINE, SHELLFISH DERIVED AND SULFA. REVIEW OF SYSTEMS: A 12-point system obtained. Pertinent positives discussed in my present illness, otherwise noncontributory. All systems that were negative were reviewed as well. MEDICATIONS: Reviewed including antibiotic, Rocephin and doxycycline. SOCIAL HISTORY: Denies tobacco use. FAMILY HISTORY: Noncontributory to lungs. PHYSICAL EXAMINATION: VITAL SIGNS: Reviewed. Pulse ox 96%, afebrile. GENERAL: Visual exam done due to COVID-19. No paradoxical breathing. He is obese. EXTREMITIES: No edema or skin rash. IMPRESSION: 1. Acute hypoxic respiratory failure secondary to COVID-19 viral pneumonia. 2. Abnormal chest x-ray consistent with COVID-19 viral pneumonia. Cannot exclude superimposed bacterial pneumonia. 3. Underlying obesity with a BMI of 40 and underlying obstructive sleep apnea. On home CPAP at nighttime. 3. History of deep venous thrombosis and pulmonary embolism, which has been recurrent and is on lifelong anticoagulation with Xarelto. Initially, it was in 2017 and then reoccurred in 2018. RECOMMENDATIONS: 1. Continue present oxygen. Keep saturation 92 and above, currently down to 2 liters. Doing well. 2. Continue empiric antibiotic. 3. Continue Xarelto. 4. Add steroids. 5. Continue CPAP at bedtime. 6. We will follow along with you. Possible discharge in 48 hours. KIRA/VIJAY DR: KIRA/nichelle TID: [id number]
[2021-07-26 11:00] VITALS: BP 127/81
[2021-07-26] MEDS: DEXAMETHASONE 4 MG TABLET PO SCH (12:12)
[2021-07-26] MEDS: oxyCODONE/APAP 5/325 1 TAB TABLET PO PRN ×2 (12:13→17:29)
[2021-07-26 15:00] VITALS: BP 127/85
[2021-07-26] MEDS: RIVAROXABAN 10 MG TABLET. PO SCH (17:28)
[2021-07-26 19:00] VITALS: BP 143/92
[2021-07-26] MEDS ORDERED: cefTRIAXone IV Push 1 GM VIAL. IVP SCH (21:00)
[2021-07-26] MEDS: SENNOSIDES/DOCUSATE 8.6/50MG TABLET. PO SCH (21:01)
[2021-07-26 23:00] VITALS: BP 145/95
--- NOTE | 2021-07-27 01:38 | EKG ---
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
[2021-07-27 03:39] VITALS: BP 142/96
[2021-07-27 07:00] VITALS: BP 160/98
[2021-07-27] MEDS: CETIRIZINE HCL 10 MG TABLET. PO SCH (09:47)
[2021-07-27] MEDS: DOXYCYCLINE HYCLATE 100 MG TABLET PO SCH (09:47)
[2021-07-27] MEDS: PANTOPRAZOLE 40 MG TABLET.DR. PO SCH (09:48)
[2021-07-27] MEDS: DEXAMETHASONE 4 MG TABLET PO SCH (09:48)
[2021-07-27] MEDS: LISINOPRIL 10 MG TABLET PO SCH (09:48)
[2021-07-27 10:30] LABS: CALCIUM 8.2 mg/dL (8.5-10.1); CREATININE 1.5 mg/dL (0.7-1.3); GFR 49.5; MAGNESIUM 1.6 mg/dL (1.8-2.4); POTASSIUM 3.9 mmol/L (3.5-5.1)
[2021-07-27 10:40] LABS: BASO % 0 % (0-3); EOS % 0 % (0-3); HEMATOCRIT 33.4 % (39.0-53.0); HEMOGLOBIN 11.9 g/dL (13.0-17.5); LYMPH # 0.7 x10^3/uL (1.0-4.8); LYMPH % 12 % (24-48); MEAN CORPUSCULAR HEMOGLOBIN 30 pg (25-35); MEAN CORPUSCULAR HGB CONC 36 g/dL (31-37); MEAN CORPUSCULAR VOLUME 86 fL (79-100); MONO # 0.3 x10^3/uL (0.0-1.1); MONO % 6 % (0-9); NEUT # 4.6 x10^3/uL (1.8-7.7); NEUT % 82 % (31-73); PLATELET COUNT 240 x10^3/uL (140-400); RED CELL DISTRIBUTION WIDTH 13.6 % (11.5-14.5); WHITE BLOOD COUNT 5.6 x10^3/uL (4.0-11.0)
[2021-07-27 11:00] VITALS: BP 144/88
--- NOTE | 2021-07-27 11:05 | NUR ---
SW following. Discussed with RN, pt from home with roommate, 2L PRN, uses cpap at home, renal diet. COVID-19 positive. RN advised no SW needs at this time. SW will continue to follow.
[2021-07-27] MEDS: SENNOSIDES/DOCUSATE 8.6/50MG TABLET. PO SCH (12:12)
--- NOTE | 2021-07-27 12:37 | PDOC ---
[employer] PROGRESS NOTE Date of Service DOS: DATE: 07/27/21 TIME: 12:34 Chief Complaint Chief Complaint A/P: Acute hypoxic respiratory failure secondary to COVID-19 viral pneumonia. Abnormal chest x-ray consistent with COVID-19 viral pneumonia. Cannot exclude superimposed bacterial pneumonia. Will treat for bilateral pneumonia likely gram negative given hx Underlying obesity with a BMI of 40 Obstructive sleep apnea. On home CPAP at nighttime. History of deep venous thrombosis and pulmonary embolism, which has been recurrent and is on lifelong anticoagulation with Xarelto. Initially, it was in 2017 and then reoccurred in 2018. FEN - General diet PPX - xarelto FULL CODE Dispo - inpatient History of Present Illness History of Present Illness Mr Hernandez is a 51-year-old male with PMHx DVT and PE in 2017 and then reoccurred in 2018 on Xarelto lifelong, ADRIEL on CPAP, morbid obesity (BMI 40) who tested positive for COVID on the 07/15. He started to have shortness of breath and some nonspecific chest pain. The patient has history of sleep apnea for which he uses CPAP at nighttime. He denies any tobacco use. He was seen in the emergency room where a chest x-ray revealed bilateral faint interstitial infiltrates with more dominant in the left base. He was tested COVID negative by rapid test. Creatinine was 1.7. Admitted on 2L NCO2 with pulmonology consultation The patient feels better. He is requiring oxygen at 2 liters. Cr 1.5, mg 1.6. He is asking when he can go home and go back to work. 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 Vitals/I&O Vitals/I&O: Vital Signs Date Time Temp Pulse Resp B/P (MAP) Pulse Ox O2 Delivery O2 Flow Rate FiO2 07/27/21 09:48 73 160/98 07/27/21 07:00 98.3 17 99 Nasal Cannula 2.0 98.3 I & O 07/26/21 07/26/21 07/27/21 15:00 23:00 07:00 Output Total 250 ml 700 ml Balance -250 ml -700 ml Physical Exam General: Alert, Oriented X3, Cooperative Heart: Regular rate, Normal S1, Normal S2 Lungs: Wheezing Abdomen: Normal bowel sounds, Soft Extremities: No clubbing, No cyanosis Skin: No rashes, No breakdown Labs Labs: Laboratory Tests Test 07/27/21 10:05 White Blood Count 5.6 x10^3/uL (4.0-11.0) Red Blood Count 3.90 x10^6/uL (4.30-5.70) Hemoglobin 11.9 g/dL (13.0-17.5) Hematocrit 33.4 % (39.0-53.0) Mean Corpuscular Volume 86 fL (79-100) Mean Corpuscular Hemoglobin 30 pg (25-35) Mean Corpuscular Hemoglobin Concent 36 g/dL (31-37) Red Cell Distribution Width 13.6 % (11.5-14.5) Platelet Count 240 x10^3/uL (140-400) Neutrophils (%) (Auto) 82 % (31-73) Lymphocytes (%) (Auto) 12 % (24-48) Monocytes (%) (Auto) 6 % (0-9) Eosinophils (%) (Auto) 0 % (0-3) Basophils (%) (Auto) 0 % (0-3) Neutrophils # (Auto) 4.6 x10^3/uL (1.8-7.7) Lymphocytes # (Auto) 0.7 x10^3/uL (1.0-4.8) Monocytes # (Auto) 0.3 x10^3/uL (0.0-1.1) Eosinophils # (Auto) 0.0 x10^3/uL (0.0-0.7) Basophils # (Auto) 0.0 x10^3/uL (0.0-0.2) Sodium Level 142 mmol/L (136-145) Potassium Level 3.9 mmol/L (3.5-5.1) Chloride Level 107 mmol/L (98-107) Carbon Dioxide Level 28 mmol/L (21-32) Anion Gap 7 (6-14) Blood Urea Nitrogen 11 mg/dL (8-26) Creatinine 1.5 mg/dL (0.7-1.3) Estimated GFR (Cockcroft-Gault) 49.5 Glucose Level 134 mg/dL (70-99) Calcium Level 8.2 mg/dL (8.5-10.1) Magnesium Level 1.6 mg/dL (1.8-2.4) Assessment and Plan Assessmemt and Plan Problems Medical Problems: (1) Pneumonia Status: Acute Comment Review of Relevant I have reviewed the following items meghan (where applicable) has been applied. Medications: Current Medications Medications (Trade) Dose Ordered Sig/Wojciech Route PRN Reason Start Time Stop Time Status Last Admin Dose Admin Ceftriaxone Sodium (Rocephin) 1 gm Q24H IVP 07/26/21 21:00 07/26/21 21:01 Rivaroxaban (Xarelto) 20 mg DAILYWSUP PO 07/26/21 17:00 07/26/21 17:28 Senna/Docusate Sodium (Senna Plus) 1 tab BID PO 07/26/21 21:00 07/27/21 12:12 Justifications for Admission Other Justification PRETTY CONTRERAS MD Jul 27, 2021 12:37
[2021-07-27] MEDS ORDERED: MAGNESIUM SULFATE 2GM 50 ML IV ONE (13:00)
[2021-07-27] MEDS ORDERED: MAGNESIUM OXIDE 400 MG TABLET PO SCH (14:00)
[2021-07-27 15:00] VITALS: BP 141/90
[2021-07-27] MEDS ORDERED: DEXA4TAB63 PO (15:31)
[2021-07-27] MEDS ORDERED: DOXY100T PO (15:31)
[2021-07-27] MEDS ORDERED: ASPI-886 PO (15:34)
[2021-07-27] MEDS ORDERED: ZINC50TA39 PO (15:34)
[2021-07-27] MEDS: RIVAROXABAN 10 MG TABLET. PO SCH (16:16)
--- NOTE | 2021-07-27 18:39 | PDOC3 ---
Discharge Summary Visit Information Date of Admission: Jul 25, 2021 Date of Discharge: Jul 27, 2021 Admitting Diagnosis: Pneumonia due to COVID 19 Final Diagnosis Problems Medical Problems: (1) Pneumonia Status: Acute Brief Hospital Course Allergies Allergies Coded Allergies Type Severity Reaction Last Updated Verified Penicillins Allergy Severe SHORTNESS OF BREATH 03/27/18 Yes iodine Allergy Severe 07/25/21 Yes shellfish derived Allergy Severe 07/25/21 Yes Sulfa (Sulfonamide Antibiotics) Allergy Intermediate SWELLING, ITCHING 03/27/18 Yes Vital Signs Vital Signs Date Time Temp Pulse Resp B/P (MAP) Pulse Ox O2 Delivery O2 Flow Rate FiO2 07/27/21 15:00 98.8 60 18 141/90 (107) 97 Room Air 98.8 07/27/21 13:52 2.0 Lab Results Laboratory Tests Test 07/25/21 22:20 07/25/21 22:26 07/26/21 00:10 07/27/21 10:05 SARS-CoV-2 RNA (MICHAEL) Positive (Negative) SARS-CoV-2 Antigen (Rapid) Negative (NEGATIVE) White Blood Count 4.4 x10^3/uL (4.0-11.0) 5.6 x10^3/uL (4.0-11.0) Red Blood Count 4.11 x10^6/uL (4.30-5.70) 3.90 x10^6/uL (4.30-5.70) Hemoglobin 12.4 g/dL (13.0-17.5) 11.9 g/dL (13.0-17.5) Hematocrit 34.3 % (39.0-53.0) 33.4 % (39.0-53.0) Mean Corpuscular Volume 83 fL (79-100) 86 fL (79-100) Mean Corpuscular Hemoglobin 30 pg (25-35) 30 pg (25-35) Mean Corpuscular Hemoglobin Concent 36 g/dL (31-37) 36 g/dL (31-37) Red Cell Distribution Width 14.1 % (11.5-14.5) 13.6 % (11.5-14.5) Platelet Count 231 x10^3/uL (140-400) 240 x10^3/uL (140-400) Neutrophils (%) (Auto) 59 % (31-73) 82 % (31-73) Lymphocytes (%) (Auto) 28 % (24-48) 12 % (24-48) Monocytes (%) (Auto) 10 % (0-9) 6 % (0-9) Eosinophils (%) (Auto) 3 % (0-3) 0 % (0-3) Basophils (%) (Auto) 1 % (0-3) 0 % (0-3) Neutrophils # (Auto) 2.6 x10^3/uL (1.8-7.7) 4.6 x10^3/uL (1.8-7.7) Lymphocytes # (Auto) 1.2 x10^3/uL (1.0-4.8) 0.7 x10^3/uL (1.0-4.8) Monocytes # (Auto) 0.4 x10^3/uL (0.0-1.1) 0.3 x10^3/uL (0.0-1.1) Eosinophils # (Auto) 0.1 x10^3/uL (0.0-0.7) 0.0 x10^3/uL (0.0-0.7) Basophils # (Auto) 0.0 x10^3/uL (0.0-0.2) 0.0 x10^3/uL (0.0-0.2) D-Dimer (Marilu) < 0.27 ug/mlFEU Sodium Level 140 mmol/L (136-145) 142 mmol/L (136-145) Potassium Level 3.4 mmol/L (3.5-5.1) 3.9 mmol/L (3.5-5.1) Chloride Level 103 mmol/L (98-107) 107 mmol/L (98-107) Carbon Dioxide Level 27 mmol/L (21-32) 28 mmol/L (21-32) Anion Gap 10 (6-14) 7 (6-14) Blood Urea Nitrogen 17 mg/dL (8-26) 11 mg/dL (8-26) Creatinine 1.7 mg/dL (0.7-1.3) 1.5 mg/dL (0.7-1.3) Estimated GFR (Cockcroft-Gault) 42.9 49.5 Glucose Level 81 mg/dL (70-99) 134 mg/dL (70-99) Calcium Level 8.6 mg/dL (8.5-10.1) 8.2 mg/dL (8.5-10.1) Troponin I Quantitative < 0.017 ng/mL (0.000-0.055) PJ-Nie-Y-Type Natriuretic Peptide 35 pg/mL (0-124) Lactic Acid Level 0.8 mmol/L (0.4-2.0) Magnesium Level 1.6 mg/dL (1.8-2.4) Laboratory Tests Test 07/27/21 10:05 White Blood Count 5.6 x10^3/uL (4.0-11.0) Red Blood Count 3.90 x10^6/uL (4.30-5.70) Hemoglobin 11.9 g/dL (13.0-17.5) Hematocrit 33.4 % (39.0-53.0) Mean Corpuscular Volume 86 fL (79-100) Mean Corpuscular Hemoglobin 30 pg (25-35) Mean Corpuscular Hemoglobin Concent 36 g/dL (31-37) Red Cell Distribution Width 13.6 % (11.5-14.5) Platelet Count 240 x10^3/uL (140-400) Neutrophils (%) (Auto) 82 % (31-73) Lymphocytes (%) (Auto) 12 % (24-48) Monocytes (%) (Auto) 6 % (0-9) Eosinophils (%) (Auto) 0 % (0-3) Basophils (%) (Auto) 0 % (0-3) Neutrophils # (Auto) 4.6 x10^3/uL (1.8-7.7) Lymphocytes # (Auto) 0.7 x10^3/uL (1.0-4.8) Monocytes # (Auto) 0.3 x10^3/uL (0.0-1.1) Eosinophils # (Auto) 0.0 x10^3/uL (0.0-0.7) Basophils # (Auto) 0.0 x10^3/uL (0.0-0.2) Sodium Level 142 mmol/L (136-145) Potassium Level 3.9 mmol/L (3.5-5.1) Chloride Level 107 mmol/L (98-107) Carbon Dioxide Level 28 mmol/L (21-32) Anion Gap 7 (6-14) Blood Urea Nitrogen 11 mg/dL (8-26) Creatinine 1.5 mg/dL (0.7-1.3) Estimated GFR (Cockcroft-Gault) 49.5 Glucose Level 134 mg/dL (70-99) Calcium Level 8.2 mg/dL (8.5-10.1) Magnesium Level 1.6 mg/dL (1.8-2.4) Brief Hospital Course Mr Hernandez is a 51-year-old male with PMHx DVT and PE in 2017 and then reoccurred in 2018 on Xarelto lifelong, ADRIEL on CPAP, morbid obesity (BMI 40) who tested positive for COVID on the 07/15. He started to have shortness of breath and some nonspecific chest pain. The patient has history of sleep apnea for which he uses CPAP at nighttime. He denies any tobacco use. He was seen in the emergency room where a chest x-ray revealed bilateral faint interstitial infiltrates with more dominant in the left base. He was tested COVID negative by rapid test. Creatinine was 1.7. Admitted on 2L NCO2 with pulmonology consultation 07/27/2021: The patient feels better. He is requiring oxygen at 2 liters. Cr 1.5, mg 1.6. He is asking when he can go home and go back to work. 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 On 6 minute walk does not require O2 at rest or on exertion Consults: Pulmonology Problem list: Acute hypoxic respiratory failure secondary to COVID-19 viral pneumonia. Resolved with steroids, did not receive remdesivir Abnormal chest x-ray consistent with COVID-19 viral pneumonia. Cannot exclude superimposed bacterial pneumonia. Will treat for bilateral pneumonia likely gram negative given hx Underlying obesity with a BMI of 40 Obstructive sleep apnea. On home CPAP at nighttime. H/o deep venous thrombosis and pulmonary embolism, which has been recurrent and is on lifelong anticoagulation with Xarelto. Initially, it was in 2017 and then reoccurred in 2018. Greater than 30 minutes spent on d/c to home with self care on doxycycline and decadron 7 days. Discharge Information Condition at Discharge: Improved Follow Up: Weeks (1) Disposition/Orders: D/C to Home Scheduled Aspirin (Aspirin Ec) 81 Mg Tablet., 1 TAB PO DAILY for COVID19 for 30 Days, #30 Ref 0 Prescribed by: PRETTY CONTRERAS MD on 07/27/211533 Dexamethasone (Decadron) 4 Mg Tablet, 4 MG PO DAILYWBKFT for COVID 19 for 7 Days, #7 Prescribed by: PRETTY CONTRERAS MD on 07/27/211530 Doxycycline Hyclate (Doxycycline Hyclate) 100 Mg Tablet, 100 MG PO BID for Pneumonia for 7 Days, #14 Prescribed by: PRETTY CONTRERAS MD on 07/27/211530 Lisinopril (Lisinopril) 10 Mg Tablet, 10 MG PO DAILY for FOR HYPERTENSION, #30 Ref 0 (Reported) Entered as Reported by: SHEYLA SELLERS on 07/26/21324 Last Action: Continued on 07/26/21909 by PRETTY WILSON MD Loratadine (Loratadine) 10 Mg Tablet, 1 TAB PO DAILY for ., #30 Ref 5 (Reported) Entered as Reported by: SHEYLA SELLERS on 07/26/21324 Last Action: Converted on 07/26/21909 by PRETTY WILSON MD Omeprazole (Omeprazole) 20 Mg Tablet.dr, 1 TAB PO DAILY for ., #90 Ref 1 (Reported) Entered as Reported by: SHEYLA SELLERS on 07/26/21324 Last Action: Converted on 07/26/21909 by PRETTY WILSON MD Rivaroxaban (Xarelto) 20 Mg Tablet, 20 MG PO DAILY, (Reported) Entered as Reported by: Jeanette Javed RPH on 07/26/21927 Last Action: New Order on 07/26/21927 by Jeanette Javed RPH Zinc (Zinc) 50 Mg Tablet, 1 TAB PO DAILY for COVID 19 for 30 Days, #30 Ref 0 Prescribed by: PRETTY CONTRERAS MD on 07/27/211533 Discontinued Medications Rivaroxaban (Xarelto) 10 Mg Tablet, 1 TAB PO DAILY for . for 10 Days, #10 Ref 0 (Reported) Discontinued Reason: Prescription changed Entered as Reported by: SHEYLA SELLERS on 07/26/21324 Last Action: Continued on 07/26/21909 by PRETTY WILSON MD Justicifation of Admission Dx: Justifications for Admission: Justification of Admission Dx: Yes RPETTY CONTRERAS MD Jul 27, 2021 18:38
[2021-07-27 19:00] VITALS: BP 157/95
--- NOTE | 2021-07-27 20:25 | NUR ---
Patient discharged home with self care, accompanied by self via private vehicle. Worsening symptoms, medications, activity, and new prescriptions reviewed with patient, verbalized understanding. Note sent home with patient to not return to work until 08/[address] Garcia's instructions. COVID precautions reviewed with patient. IV removed and no telemetry ordered. Patient verbalized understanding to all information.
[2021-07-27] MEDS ORDERED: LACTOBACILLUS RHAMNOSUS GG 1 CAPSULE. PO SCH (21:00)
== END 2021-07-27 19:55 | disposition home or self-care (01) | DRG 177 ==
LOC: ER 21:48 → 5 NORTH 07-26 00:11 → ER 07-26 02:34
PROVIDERS: ADMIT Internal Medicine; ATTEND Internal Medicine
DX: U07.1 COVID-19 (principal); J12.82 Pneumonia due to coronavirus disease 2019; J96.01 Acute respiratory failure with hypoxia; Z68.41 Body mass index [BMI] 40.0-44.9, adult; G47.33 Obstructive sleep apnea (adult) (pediatric); E66.01 Morbid (severe) obesity due to excess calories; Z79.01 Long term (current) use of anticoagulants; Z86.711 Personal history of pulmonary embolism; Z86.718 Personal history of other venous thrombosis and embolism; Z87.891 Personal history of nicotine dependence; Z90.49 Acquired absence of other specified parts of digestive tract; Z88.2 Allergy status to sulfonamides; Z91.041 Radiographic dye allergy status; Z88.0 Allergy status to penicillin; Z91.013 Allergy to seafood
CPT/HCPCS: 36415; 71045; 80048; 83605; 83735; 83880; 84484; 85025; 85379; 87040; 87426; 93005; 94618; 96361; 96365; 96375; J0456; J0696; J3475; J7030; U0003; U0005; 99285-25; G0378

== ENCOUNTER 2021-08-15 23:44 | Emergency (ER) | payer OTHER ==
[~2021-08-15] VITALS: Ht 170.2 cm; Wt 116.4 kg
[~2021-08-15 23:44] MED LIST: ASPI-886 PO; DEXA4TAB63 PO; DOXY100T PO; LISI10TA16 PO; LORA10TA3 PO; OMEP20TA8 PO; RIVA10TA PO; RIVA20TA2 PO; ZINC50TA39 PO
--- NOTE | 2021-08-16 00:24 | RAD ---
Single view chest dated 08/16/2021 12:20 AM: COMPARISON: 07/25/2021 Clinical Indication: Shortness of breath. Findings: Single upright portable exam of the chest was performed. Heart and mediastinal contours are stable. T here is some mild patchy and linear bibasilar opacity, somewhat improved from prior study. No pleural effusion. No pneumothorax. IMPRESSION: Improving bibasilar airspace disease. Electronically signed by: Jarrett Ugalde MD (08/16/2021 12:21 AM) BRENDAN
[2021-08-16 00:33] LABS: BASO # 0.1 x10^3/uL (0.0-0.2); BASO % 1 % (0-3); EOS # 0.2 x10^3/uL (0.0-0.7); EOS % 4 % (0-3); HEMATOCRIT 35.5 % (39.0-53.0); HEMOGLOBIN 12.4 g/dL (13.0-17.5); LYMPH # 1.6 x10^3/uL (1.0-4.8); LYMPH % 25 % (24-48); MEAN CORPUSCULAR HEMOGLOBIN 31 pg (25-35); MEAN CORPUSCULAR HGB CONC 35 g/dL (31-37); MEAN CORPUSCULAR VOLUME 88 fL (79-100); MONO # 0.6 x10^3/uL (0.0-1.1); MONO % 10 % (0-9); NEUT # 3.8 x10^3/uL (1.8-7.7); NEUT % 60 % (31-73); PLATELET COUNT 109 x10^3/uL (140-400); RED BLOOD COUNT 4.03 x10^6/uL (4.30-5.70); RED CELL DISTRIBUTION WIDTH 14.9 % (11.5-14.5); WHITE BLOOD COUNT 6.4 x10^3/uL (4.0-11.0)
--- NOTE | 2021-08-16 00:33 | PHYS DOC ---
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 Patient is morbidly obese who was tested positive for COVID-19 on July 15, 2021. Patient was admitted here for pneumonia and discharged home recently. [facility] of bilateral lower extremity swelling, much worse on the left side and right side. Patient also complained of trouble breathing with exertion. Patient denies any cough or fever. Patient says he was on some water pill but ran out recently. Patient said he has been elevated his legs and the swelling subsided significantly. Review of Systems: Review of Systems: Constitutional: Denies fever or chills. [] Eyes: Denies change in visual acuity. [] HENT: Denies nasal congestion or sore throat. [] Respiratory: Denies cough , positive for shortness of breath. [] Cardiovascular: Denies chest pain or edema. [] GI: Denies abdominal pain, nausea, vomiting, bloody stools or diarrhea. [] : Denies dysuria. [] Musculoskeletal: Denies back pain or joint pain. Positive for left leg swelling and pain Integument: Denies rash. [] Neurologic: Denies headache, focal weakness or sensory changes. [] Endocrine: Denies polyuria or polydipsia. [] Lymphatic: Denies swollen glands. [] Psychiatric: Denies depression or anxiety. [] Heart Score: C/O Chest Pain: N/A Risk Factors: Risk Factors: DM, Current or recent (<one month) smoker, HTN, HLP, family history of CAD, obesity. Risk Scores: Score 0 - 3: 2.5% MACE over next 6 weeks - Discharge Home Score 4 - 6: 20.3% MACE over next 6 weeks - Admit for Clinical Observation Score 7 - 10: 72.7% MACE over next 6 weeks - Early Invasive Strategies Allergies: Allergies: Allergies Coded Allergies Type Severity Reaction Last Updated Verified Penicillins Allergy Severe SHORTNESS OF BREATH 03/27/18 Yes iodine Allergy Severe 07/25/21 Yes shellfish derived Allergy Severe 07/25/21 Yes Sulfa (Sulfonamide Antibiotics) Allergy Intermediate SWELLING, ITCHING 03/27/18 Yes Physical Exam: PE: Constitutional: Well developed, well nourished, no acute distress, non-toxic appearance. [] HENT: Normocephalic, atraumatic, bilateral external ears normal, oropharynx moist, no oral exudates, nose normal. [] Eyes: PERRLA, EOMI, conjunctiva normal, no discharge. [] Neck: Normal range of motion, no tenderness, supple, no stridor. [] Cardiovascular:Heart rate regular rhythm, no murmur [] Lungs & Thorax: Bilateral breath sounds clear to auscultation [] Abdomen: Bowel sounds normal, soft, no tenderness, no masses, no pulsatile masses. [] Skin: Warm, dry, no erythema, no rash. [] Back: No tenderness, no CVA tenderness. [] Extremities: No tenderness, no cyanosis, no clubbing, ROM intact, bilateral legs with pitting edema 2 plus, left leg is more swollen comparing to the right leg. Neurologic: Alert and oriented X 3, normal motor function, normal sensory function, no focal deficits noted. [] Psychologic: Affect normal, judgement normal, mood normal. [] Current Patient Data: Labs: Laboratory Tests Test 08/16/21 00:15 08/16/21 00:16 SARS-CoV-2 Antigen (Rapid) Negative White Blood Count 6.4 x10^3/uL Red Blood Count 4.03 x10^6/uL Hemoglobin 12.4 g/dL Hematocrit 35.5 % Mean Corpuscular Volume 88 fL Mean Corpuscular Hemoglobin 31 pg Mean Corpuscular Hemoglobin Concent 35 g/dL Red Cell Distribution Width 14.9 % Platelet Count 109 x10^3/uL Neutrophils (%) (Auto) 60 % Lymphocytes (%) (Auto) 25 % Monocytes (%) (Auto) 10 % Eosinophils (%) (Auto) 4 % Basophils (%) (Auto) 1 % Neutrophils # (Auto) 3.8 x10^3/uL Lymphocytes # (Auto) 1.6 x10^3/uL Monocytes # (Auto) 0.6 x10^3/uL Eosinophils # (Auto) 0.2 x10^3/uL Basophils # (Auto) 0.1 x10^3/uL Sodium Level 139 mmol/L Potassium Level 4.0 mmol/L Chloride Level 102 mmol/L Carbon Dioxide Level 31 mmol/L Anion Gap 6 Blood Urea Nitrogen 17 mg/dL Creatinine 1.4 mg/dL Estimated GFR (Cockcroft-Gault) 53.6 BUN/Creatinine Ratio 12 Glucose Level 114 mg/dL Calcium Level 8.4 mg/dL Magnesium Level 1.7 mg/dL Total Bilirubin 0.5 mg/dL Aspartate Amino Transf (AST/SGOT) 15 U/L Alanine Aminotransferase (ALT/SGPT) 39 U/L Alkaline Phosphatase 86 U/L Troponin I Quantitative < 0.017 ng/mL MN-Mrk-T-Type Natriuretic Peptide 35 pg/mL Total Protein 7.0 g/dL Albumin 3.3 g/dL Albumin/Globulin Ratio 0.9 Current Medications Medications (Trade) Dose Ordered Sig/Wojciech Route PRN Reason Start Time Stop Time Status Last Admin Dose Admin Magnesium Sulfate/ Dextrose 100 ml @ 100 mls/hr 1X ONCE IV 08/16/21 03:15 08/16/21 04:14 08/16/21 03:14 Vital Signs: Vital Signs Date Time Temp Pulse Resp B/P (MAP) Pulse Ox O2 Delivery O2 Flow Rate FiO2 08/15/21 23:52 97.9 104 16 158/94 (115) 96 Room Air 97.9 EKG: EKG: EKG was done at 2358, heart rate 105 bpm, sinus tachycardia, no ST segment elevation Radiology/Procedures: Radiology/Procedures: [][facility] [address] [place], [place] [id number] IMAGING REPORT Signed PATIENT: ARGELIA REILLY ACCOUNT: [id number] : 1970 LOCATION: ER AGE: 51 SEX: M EXAM STATUS: PRE ER ORD. PHYSICIAN: TANA FAUST DO REASON: SOA PROCEDURE: PORTABLE CHEST 1V Single view chest dated 08/16/2021 12:20 AM: COMPARISON: 07/25/2021 Clinical Indication: Shortness of breath. Findings: Single upright portable exam of the chest was performed. Heart and mediastinal contours are stable. There is some mild patchy and linear bibasilar opacity, somewhat improved from prior study. No pleural effusion. No pneumothorax. IMPRESSION: Improving bibasilar airspace disease. Electronically signed by: Jarrett Ugalde MD (08/16/2021 12:21 AM) [facility] DICTATED and SIGNED BY: JARRETT UGALDE MD DATE: 08/16/21 [id number] [facility] [address] [place] [address] IMAGING REPORT Signed PATIENT: ARGELIA REILLY ACCOUNT: [id number] : 1970 LOCATION: ER AGE: 51 SEX: M EXAM STATUS: REG ER ORD. PHYSICIAN: TANA FAUST DO REASON: LEFT LEG SWELLING, HX OF DVT, PE, CALLED SD@0040 PROCEDURE: VENOUS LOWER EXTREMITY LEFT Left lower extremity venous Doppler dated 08/16/2021 2:05 AM COMPARISON: none. CLINICAL INDICATION: Leg swelling . History of DVT FINDINGS: Grayscale, color-flow and spectral waveform analysis performed to include the deep venous system of left lower extremity. There is normal compressibility, phasicity and augmentation of flow throughout. No filling defects are seen. IMPRESSION: No evidence of left lower extremity deep vein thrombosis. Electronically signed by: Jarrett Ugalde MD (08/16/2021 2:06 AM) [facility] DICTATED and SIGNED BY: JARRETT UGALDE MD DATE: 08/16/21 [id number] Course & Med Decision Making: Course & Med Decision Making Pertinent Labs and Imaging studies reviewed. (See chart for details) Patient is a 51-year-old male who present to ER due to left lower extremity swelling. Venous Doppler did not show any evidence of DVT. Chest x-ray today is significantly better than chest x-ray couple weeks ago. Patient required no oxygen, he was in no acute distress. Patient was tested negative for COVID-19 again. He will be discharged home and cleared to return to work immediately. Dragon Disclaimer: Dragmarques Disclaimer: This electronic medical record was generated, in whole or in part, using a voice recognition dictation system. Departure Departure Impression: Primary Impression: Peripheral edema Disposition: HOME / SELF CARE / HOMELESS Condition: STABLE Referrals: JAS RAMIREZ MD (PCP) Follow up with your doctor on Tuesday for reevaluation. Patient Instructions: Peripheral Edema Additional Instructions: Thank you for visiting our Emergency Department. We appreciate you trusting us with your care. If any additional problems come up don't hesitate to return to visit us. Please follow up with your primary care provider so they can plan additional care if needed and know about the problem that you had. If symptoms worsen come back to the Emergency Department. Any concerning symptoms that start such as chest pain, shortness of air, weakness or numbness on one side of the body, running high fevers or any other concerning symptoms return to the ER. TANA FAUST DO Aug 16, 2021 00:33
[2021-08-16 01:27] LABS: CALCIUM 8.4 mg/dL (8.5-10.1); CREATININE 1.4 mg/dL (0.7-1.3); GFR 53.6
[2021-08-16 01:33] LABS: ALBUMIN 3.3 g/dL (3.4-5.0); ALBUMIN/GLOBULIN RATIO 0.9 (1.0-1.7); MAGNESIUM 1.7 mg/dL (1.8-2.4); TOTAL BILIRUBIN 0.5 mg/dL (0.2-1.0)
--- NOTE | 2021-08-16 02:08 | RAD ---
Left lower extremity venous Doppler dated 08/16/2021 2:05 AM COMPARISON: none. CLINICAL INDICATION: Leg swelling . History of DVT FINDINGS: Grayscale, color-flow and spectral waveform analysis performed to include the deep venous system of l eft lower extremity. There is normal compressibility, phasicity and augmentation of flow throughout. No filling defects are seen. IMPRESSION: No evidence of left lower extremity deep vein thrombosis. Electronically signed by: Jarrett Ugalde MD (08/16/2021 2:06 AM) BRENDAN
[2021-08-16] MEDS ORDERED: MAGNESIUM SULFATE 1GM 100 ML IV ONE (03:15)
[2021-08-16 04:04] VITALS: BP 130/82
--- NOTE | 2021-08-16 04:08 | EKG ---
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
--- NOTE | 2021-08-17 15:40 | NUR ---
IP: IP: Attempted to notify patient of negative COVID19 test result. Voicemail message to please return call at the number provided.
--- NOTE | 2021-08-17 16:35 | NUR ---
IP: Patient notified of negative COVID19 test result. Verbalized understanding.
== END 2021-08-16 04:10 | disposition home or self-care (01) ==
LOC: ER 23:44
DX: R60.0 Localized edema (principal); Z20.822 Contact with and (suspected) exposure to COVID-19; G89.29 Other chronic pain; Z88.0 Allergy status to penicillin; Z88.2 Allergy status to sulfonamides; Z91.013 Allergy to seafood; Z88.8 Allergy status to other drugs, medicaments and biological substances
CPT/HCPCS: 36415; 71045; 80053; 83735; 83880; 84484; 85025; 87426; 93005; 93971; 96365; 99285; J3475; U0003; U0005